=== PATIENT | male | born 1990 | race American Indian/Alaskan Native ===

== ENCOUNTER 2017-11-25 13:06 | Emergency (ER) | payer MEDICARE ==
[2017-11-25 13:49] VITALS: BP 123/85
== END 2017-11-25 17:50 | disposition left against medical advice (07) ==
LOC: ED 13:06
DX: J45.909 Unspecified asthma, uncomplicated (principal); Z53.21 Procedure and treatment not carried out due to patient leaving prior to being seen by health care provider

== ENCOUNTER 2019-05-11 22:10 | Emergency (ER) | payer OTHER, MEDICARE ==
[2019-05-12] MEDS ORDERED: TORADOL IM ONE (04:06)
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
--- NOTE | 2019-05-12 05:19 | XRay Report ---
LUMBAR SPINE 3 VIEWS INDICATION / CLINICAL INFORMATION: low back pain. COMPARISON: None available. FINDINGS: VERTEBRAE: No fracture. No significant malalignment. DISC SPACES:No significant abnormality. FACET JOINTS:No significant abnormality. ADDITIONAL FINDINGS: None. IMPRESSION: 1. No significant abnormality. Signer Name: Alf Escobedo MD Signed: 05/12/2019 5:15 AM Workstation Name: [id number]
[2019-05-12 06:06] VITALS: BP 116/66
== END 2019-05-12 05:00 | disposition home or self-care (01) ==
LOC: ED 22:10
DX: S39.012A Strain of muscle, fascia and tendon of lower back, initial encounter (principal); I10 Essential (primary) hypertension; M19.90 Unspecified osteoarthritis, unspecified site; J45.909 Unspecified asthma, uncomplicated; F12.10 Cannabis abuse, uncomplicated; V49.59XA Passenger injured in collision with other motor vehicles in traffic accident, initial encounter; Y93.89 Activity, other specified; Y92.488 Other paved roadways as the place of occurrence of the external cause; Y99.8 Other external cause status
CPT/HCPCS: 72100; 96372; 99283; J1885

== ENCOUNTER 2019-08-30 19:30 | Emergency (ER) | payer MEDICARE | END 2019-08-31 01:55 | disposition home or self-care (01) | LOC: ED 19:30 | CPT/HCPCS: 99282 ==